=== PATIENT | female | born 1940 | race Caucasian/White ===

== ENCOUNTER 2021-12-09 08:28 | Day surgery (SDC) | payer MEDICARE, MEDICAID ==
[2021-12-02 10:42] LABS: BASOPHILS % (AUTO) 0.3 % (0-1); EOSINOPHILS # (AUTO) 0.1 X10'3 (0-0.9); EOSINOPHILS % (AUTO) 1.5 % (0-6); LYMPHOCYTES # (AUTO) 2.2 X10'3 (1.1-4.8); MEAN CORPUSCULAR HEMOGLOBIN 28.7 PG (27.0-31.0); MEAN CORPUSCULAR HGB CONC 32.4 g/dL (33.0-36.5); MEAN CORPUSCULAR VOLUME 88.5 FL (78-98); MEAN PLATELET VOLUME 9.4 FL (7.4-10.4); MONOCYTES # (AUTO) 0.6 X10'3 (0-0.9); MONOCYTES % (AUTO) 7.9 % (2-12); NEUTROPHILS # (AUTO) 5.1 X10'3 (1.8-7.7); NEUTROPHILS % (AUTO) 63.3 % (42-75); PRE OP HEMATOCRIT 35.4 % (35.0-45.0); PRE OP HEMOGLOBIN 11.5 g/dL (12.0-16.0); PRE OP PLATELET COUNT 255 X10'3 (140-440); RED CELL DISTRIBUTION WIDTH 14.6 % (11.5-14.5)
[2021-12-02 10:54] LABS: ALBUMIN 3.4 G/DL (3.4-5.0); ALBUMIN/GLOBULIN RATIO 0.9 (1.1-1.5); ALKALINE PHOSPHATASE 49 IU/L (46-116); BLOOD UREA NITROGEN 16 MG/DL (7-18); BUN/CREATININE RATIO 22.5 (6.6-38.0); CALCIUM 8.9 MG/DL (8.5-10.1); CHLORIDE 106 MMOL/L (99-107); CREATININE 0.71 MG/DL (0.40-0.90); PRE OP ALT 27 U/L (30-65); PRE OP ANION GAP 6 (8-16); PRE OP AST 23 U/L (10-37); PRE OP BILIRUB, TOTAL 0.5 MG/DL (0.0-1.0); PRE OP GLUCOSE 98 MG/DL (70-104); PRE OP POTASSIUM 4.5 MMOL/L (3.4-5.1); PRE OP SODIUM 144 MMOL/L (135-145); TOTAL CARBON DIOXIDE 31.6 MMOL/L (24-32); eGFR 79 ML/MIN
[~2021-12-09] VITALS: Ht 152.4 cm; Wt 54.4 kg
[~2021-12-09 08:28] MED LIST: BIOT50002 PO; BUPIVAcaine/PF 7.5mg/ml (0.75%) 10ml vial ONE; BUPR8TAB4 SL; CARV25TA3 PO; CLOP75TA34 PO; ESTR1TAB19 PO; GABA-532 PO; HYDR-4070 PO; LEVO300T2 PO; LIDOcaine 0.5% (5mg/ml) 50ml vial ONE; LOPE2CAP PO; LOSA100T57 PO; MULT-1085 PO; ROSU10TA28 PO; TIZA-189 PO; ceFAZolin/D5W- 1GM premix 50 ML IV ONE; famotidine 20mg tablet PO ONE; ringers solution, lacted 1,000 ML IV SCH
[2021-12-09] MEDS ORDERED: morphine 2 MG/ML inj. syringe IV PRN (09:25)
[2021-12-09] MEDS ORDERED: morphine 4 MG/ML inj SYRINge IV PRN (09:25)
[2021-12-09] MEDS ORDERED: hydrALAZINE 20mg/ml inj. IV PRN (09:25)
[2021-12-09] MEDS ORDERED: labetalol 20mg/4ml (5mg/ml) syringe IV PRN (09:25)
[2021-12-09] MEDS ORDERED: ringers solution, lacted 1,000 ML IV SCH (09:25)
[2021-12-09] MEDS ORDERED: ondansetron/PF 4mg/2ml inj IV PRN (09:25)
[2021-12-09] MEDS ORDERED: fentaNYL/PF 50MCG/1 ML 2ML syringe IV PRN ×2 (09:25)
[2021-12-09] MEDS ORDERED: midazolam 1 mg/ML 2ml injection ONE (10:16)
[2021-12-09] MEDS ORDERED: fentaNYL/PF 50MCG/1 ML 2ML syringe ONE (10:16)
[2021-12-09 10:47] VITALS: BP 143/66
--- NOTE | 2021-12-09 10:47 | NUR ---
Received from OR via , accompanied by Anesthesiologist DR MIRANDA and report given by Anesthesiolgist. AWAKENS TO VOICE. VITALS STABLE. DRESSING DI. MATEO PAIN. FINGERS WARM AND PINK.
[2021-12-09 10:57] VITALS: BP 130/62
[2021-12-09 11:07] VITALS: BP 122/58
[2021-12-09 11:17] VITALS: BP 138/64
--- NOTE | 2021-12-09 11:27 | NUR ---
AWAKE AND ORIENTED. VITALS STABLE. DRESSING DI. MATEO PAIN. HOME WITH A FRIEND AT THIS TIME.
[2021-12-09 12:45] VITALS: BP 148/87
== END 2021-12-09 11:27 | disposition home or self-care (01) ==
LOC: PRE-OP 08:28
PROVIDERS: ATTEND Orthopaedic Surgery Hand Surgery
DX: G56.02 Carpal tunnel syndrome, left upper limb (principal); I10 Essential (primary) hypertension; E03.9 Hypothyroidism, unspecified; G43.909 Migraine, unspecified, not intractable, without status migrainosus; M81.0 Age-related osteoporosis without current pathological fracture; M19.041 Primary osteoarthritis, right hand; Z98.890 Other specified postprocedural states; Z79.899 Other long term (current) drug therapy; Z90.710 Acquired absence of both cervix and uterus; Z98.1 Arthrodesis status; Z79.01 Long term (current) use of anticoagulants; Z88.8 Allergy status to other drugs, medicaments and biological substances; Z88.5 Allergy status to narcotic agent; Z20.822 Contact with and (suspected) exposure to COVID-19
CPT/HCPCS: 36415; 64721; 80053; 82948; 85025; 93005; J0690; J2250; J3010; J3490; J7030; J7120; U0003; U0005; Z7506; Z7512; A4215; A6449

== ENCOUNTER 2022-01-03 11:01 | Day surgery (SDC) | payer MEDICARE, MEDICAID ==
[2021-12-28 12:15] LABS: BASOPHILS % (AUTO) 0.4 % (0-1); EOSINOPHILS # (AUTO) 0.2 X10'3 (0-0.9); EOSINOPHILS % (AUTO) 3.4 % (0-6); LYMPHOCYTES # (AUTO) 2.2 X10'3 (1.1-4.8); LYMPHOCYTES % (AUTO) 34.3 % (21-51); MEAN CORPUSCULAR HEMOGLOBIN 28.7 PG (27.0-31.0); MEAN CORPUSCULAR HGB CONC 32.7 g/dL (33.0-36.5); MEAN CORPUSCULAR VOLUME 87.8 FL (78-98); MEAN PLATELET VOLUME 9.3 FL (7.4-10.4); MONOCYTES # (AUTO) 0.6 X10'3 (0-0.9); MONOCYTES % (AUTO) 8.7 % (2-12); NEUTROPHILS # (AUTO) 3.4 X10'3 (1.8-7.7); NEUTROPHILS % (AUTO) 53.2 % (42-75); PRE OP HEMATOCRIT 34.1 % (35.0-45.0); PRE OP HEMOGLOBIN 11.1 g/dL (12.0-16.0); PRE OP PLATELET COUNT 242 X10'3 (140-440); RED BLOOD COUNT 3.88 X10'6 (4.20-5.60); RED CELL DISTRIBUTION WIDTH 14.3 % (11.5-14.5)
[2021-12-28 13:02] LABS: ALBUMIN 3.6 G/DL (3.4-5.0); ALKALINE PHOSPHATASE 48 IU/L (46-116); BLOOD UREA NITROGEN 18 MG/DL (7-18); BUN/CREATININE RATIO 28.1 (6.6-38.0); CALCIUM 8.6 MG/DL (8.5-10.1); CHLORIDE 106 MMOL/L (99-107); CREATININE 0.64 MG/DL (0.40-0.90); PRE OP ALT 26 U/L (30-65); PRE OP ANION GAP 8 (8-16); PRE OP AST 26 U/L (10-37); PRE OP BILIRUB, TOTAL 0.6 MG/DL (0.0-1.0); PRE OP GLUCOSE 95 MG/DL (70-104); PRE OP POTASSIUM 4.2 MMOL/L (3.4-5.1); PRE OP SODIUM 143 MMOL/L (135-145); TOTAL CARBON DIOXIDE 29.5 MMOL/L (24-32); TOTAL PROTEIN 7.1 G/DL (6.4-8.2); eGFR 89 ML/MIN
[2022-01-03] VITALS (12 sets, daily range): BP systolic 119–176; BP diastolic 45–91
[~2022-01-03] VITALS: Ht 293.9 cm; Wt 54.4 kg
[~2022-01-03 11:01] MED LIST changes: +BUPIVAcaine/PF 2.5mg/ml (0.25%) 10ml vial ONE; -BUPIVAcaine/PF 7.5mg/ml (0.75%) 10ml vial ONE; +DOCUMENT DATE & TIME OF BETA-BLOCKER PO ONE; -LIDOcaine 0.5% (5mg/ml) 50ml vial ONE; +LIDOcaine 1% 30ml preserv. free vial ONE; +ceFAZolin inj. 2,000 MG in dextrose 5%-water 100 ML IV ONE; -ceFAZolin/D5W- 1GM premix 50 ML IV ONE
[2022-01-03] MEDS ORDERED: LIDOcaine 1% 30ml preserv. free vial ONE ×2 (13:15→13:22)
[2022-01-03] MEDS ORDERED: BUPIVAcaine/PF 2.5mg/ml (0.25%) 10ml vial ONE ×3 (13:22→14:53)
[2022-01-03] MEDS ORDERED: BUPIVACAINE liposomal/PF 13.3 MG/ML vial IM ONE (13:23)
[2022-01-03] MEDS ORDERED: sevoflurane 250ml liquid IH ONE (13:33)
[2022-01-03] MEDS ORDERED: midazolam 1 mg/ML 2ml injection ONE (13:40)
[2022-01-03] MEDS ORDERED: fentaNYL /PF 50mcg/ml 5ml ampule ONE (13:40)
[2022-01-03] MEDS ORDERED: hydrALAZINE 20mg/ml inj. IV PRN (14:15)
[2022-01-03] MEDS ORDERED: morphine 2 MG/ML inj. syringe IV PRN (14:15)
[2022-01-03] MEDS ORDERED: morphine 4 MG/ML inj SYRINge IV PRN (14:15)
[2022-01-03] MEDS ORDERED: ondansetron/PF 4mg/2ml inj IV PRN (14:15)
[2022-01-03] MEDS ORDERED: meperidine/PF 25mg/ml syringe IV PRN ×3 (14:15)
[2022-01-03] MEDS ORDERED: proCHLORperazine 10 MG/2 ml inj IV PRN (14:15)
[2022-01-03] MEDS ORDERED: ringers solution, lacted 1,000 ML IV SCH (14:15)
[2022-01-03] MEDS ORDERED: labetalol 20mg/4ml (5mg/ml) syringe IV PRN (14:15)
[2022-01-03] MEDS ORDERED: acetaminophen 1,000mg/100ml IV 100 ML IV PRN (14:15)
[2022-01-03] MEDS ORDERED: propofol inj 20 ML IV ONE (14:51)
[2022-01-03] MEDS ORDERED: LIDOcaine 1%/PF 5ML 10 MG/ML VIAL ONE (14:51)
[2022-01-03] MEDS ORDERED: ondansetron/PF 4mg/2ml inj ONE (14:51)
[2022-01-03] MEDS ORDERED: dexamethasone sod phosphate 4mg/ml inj. ONE (14:51)
[2022-01-03] MEDS ORDERED: rocuronium 10mg/ml inj IV ONE (14:51)
[2022-01-03] MEDS ORDERED: neostigmine methylsulfate 1 MG/ML 10ml vial ONE (14:52)
[2022-01-03] MEDS ORDERED: glycopyrrolate 0.2mg/ml inj ONE (14:52)
[2022-01-03] MEDS ORDERED: HYDROcodone/acetaminophen 5mg/325mg tablet PO PRN (15:10)
--- NOTE | 2022-01-03 15:10 | NUR ---
Received from OR via [facility] , accompanied by Anesthesiologist LAY and report given by Anesthesiolgist. PATIENT WITH 3 LAP SITES TO ABDOMEN THAT ARE CDI. 10L MASK ON WITH 100% SATUATIONS. WILL CONTINUE TO ASSESS. Addendum: 01/03/22 at 1522 by Tom Chaudhry RN, RN Amended: Links added.
[2022-01-03] MEDS ORDERED: HYDROmorphone inj. 0.5 MG/0.5 ML DISP.SYRIN ONE (15:16)
--- NOTE | 2022-01-03 16:50 | NUR ---
ALL DISCHARGE CRITERIA HAS BEEN MET. VSS, PAIN AT A TOLERABLE LEVEL, VOIDING AND ABLE TO SAFELY AMBULATE AND TRANSFER SELF. IV TAKEN OUT WITHOUT ANY COMPLICATIONS. ALL DISCHARGE INSTRUCTIONS COVERED WITH PATIENT AND ALL QUESTIONS ANSWERED. PATIENT TAKEN OUT VIA WHEELCHAIR TO PERSONAL VEHICLE WHERE FAMILY/FRIEND DROVE PATIENT HOME. Addendum: 01/03/22 at 1701 by Tom Chaudhry RN, RN Amended: Links added.
== END 2022-01-03 16:50 | disposition home or self-care (01) ==
LOC: PAS 11:01
PROVIDERS: ATTEND Surgery
DX: K43.0 Incisional hernia with obstruction, without gangrene (principal); K41.90 Unilateral femoral hernia, without obstruction or gangrene, not specified as recurrent; K42.9 Umbilical hernia without obstruction or gangrene; I10 Essential (primary) hypertension; E03.9 Hypothyroidism, unspecified; G89.29 Other chronic pain; Z98.890 Other specified postprocedural states; Z90.710 Acquired absence of both cervix and uterus; Z79.899 Other long term (current) drug therapy; Z79.01 Long term (current) use of anticoagulants; Z88.8 Allergy status to other drugs, medicaments and biological substances; Z88.5 Allergy status to narcotic agent; Z82.3 Family history of stroke
CPT/HCPCS: 36415; 49585; 49655; 80053; 82948; 85025; C1781; J0690; J1100; J1170; J2175; J2250; J2270; J2405; J2704; J2710; J3010; J3490; J7030; J7060; J7120; Z7506; Z7508; Z7512; A4215; A4618; C9290

== ENCOUNTER 2022-05-17 19:12 | Emergency (ER) | payer MEDICARE, MEDICAID ==
[~2022-05-17] VITALS: Ht 167.6 cm; Wt 52.2 kg
[~2022-05-17 19:12] MED LIST changes: +AMIO200T61 PO; +APIX2.5T PO; -BIOT50002 PO; -BUPIVAcaine/PF 2.5mg/ml (0.25%) 10ml vial ONE; +CALC500T63 PO; +CARV25TA2 PO; -CARV25TA3 PO; +CHOL500050 PO; +CLOP75TA15 PO; -CLOP75TA34 PO; -DOCUMENT DATE & TIME OF BETA-BLOCKER PO ONE; -GABA-532 PO; +GABA300C PO; +LEVO100T PO; -LEVO300T2 PO; -LIDOcaine 1% 30ml preserv. free vial ONE; -LOPE2CAP PO; +MAGN400C PO; +ROSU10TA2 PO; -ROSU10TA28 PO; -ceFAZolin inj. 2,000 MG in dextrose 5%-water 100 ML IV ONE; -famotidine 20mg tablet PO ONE; -ringers solution, lacted 1,000 ML IV SCH
[2022-05-17 19:19] VITALS: BP 201/72
[2022-05-17 19:40] LABS: BASOPHILS % (AUTO) 0.5 % (0-1); EOSINOPHILS # (AUTO) 0.2 X10'3 (0-0.9); EOSINOPHILS % (AUTO) 2.8 % (0-6); HEMATOCRIT 31.4 % (35.0-45.0); HEMOGLOBIN 10.2 g/dl (12.0-16.0); LYMPHOCYTES # (AUTO) 2.1 X10'3 (1.1-4.8); LYMPHOCYTES % (AUTO) 24.3 % (21-51); MEAN CORPUSCULAR HEMOGLOBIN 28.6 PG (27.0-31.0); MEAN CORPUSCULAR HGB CONC 32.6 g/dL (33.0-36.5); MEAN CORPUSCULAR VOLUME 87.7 FL (78-98); MEAN PLATELET VOLUME 8.5 FL (7.4-10.4); MONOCYTES # (AUTO) 0.7 X10'3 (0-0.9); MONOCYTES % (AUTO) 8.7 % (2-12); NEUTROPHILS # (AUTO) 5.4 X10'3 (1.8-7.7); NEUTROPHILS % (AUTO) 63.7 % (42-75); PLATELET COUNT 277 X10'3 (140-440); RED BLOOD COUNT 3.58 X10'6 (4.20-5.60); RED CELL DISTRIBUTION WIDTH 16.5 % (11.5-14.5); WHITE BLOOD COUNT 8.4 X10'3 (4.5-11.0)
[2022-05-17 19:55] LABS: ALANINE AMINOTRANSFERASE 44 U/L (12-78); ALBUMIN 3.8 G/DL (3.4-5.0); ALBUMIN/GLOBULIN RATIO 1.1 (1.1-1.5); ALKALINE PHOSPHATASE 78 IU/L (46-116); ANION GAP 8 (8-16); ASPARTATE AMINO TRANSFERASE 49 U/L (10-37); BILIRUBIN,TOTAL 0.5 MG/DL (0.1-1.0); BLOOD UREA NITROGEN 16 MG/DL (7-18); BUN/CREATININE RATIO 18.6 (6.6-38.0); CALCIUM 8.9 MG/DL (8.5-10.1); CHLORIDE 105 MMOL/L (99-107); CREATININE 0.86 MG/DL (0.40-0.90); GLUCOSE 121 MG/DL (70-104); POTASSIUM 4.4 MMOL/L (3.5-5.1); SODIUM 142 MMOL/L (135-145); TOTAL PROTEIN 7.3 G/DL (6.4-8.2); eGFR 63 ML/MIN
== END 2022-05-18 01:45 | disposition home or self-care (01) ==
LOC: ER 19:13
DX: R00.2 Palpitations (principal); R06.02 Shortness of breath; R11.0 Nausea; I48.91 Unspecified atrial fibrillation; Z88.5 Allergy status to narcotic agent; Z88.6 Allergy status to analgesic agent
CPT/HCPCS: 36415; 71045; 80053; 83880; 84484; 85025; 93005; 99285

== ENCOUNTER 2022-06-09 10:01 | Outpatient (CLI) | payer MEDICARE, MEDICAID ==
[~2022-06-09] VITALS: Ht 152.4 cm; Wt 52.2 kg
[2022-06-09] MEDS ORDERED: albuterol 2.5 MG/3 ML nebule NEB ONE (11:15)
== END 2022-06-09 23:59 | disposition home or self-care (01) ==
LOC: RT 10:01
PROVIDERS: ATTEND Internal Medicine Cardiovascular Disease
DX: R06.02 Shortness of breath (principal); M47.814 Spondylosis without myelopathy or radiculopathy, thoracic region; Z79.899 Other long term (current) drug therapy
CPT/HCPCS: 71046; 94060; 94727; 94729; 94760

== ENCOUNTER 2023-07-13 10:23 | Day surgery (SDC) | payer MEDICARE, MEDICAID ==
[2023-07-12 13:57] LABS: BASOPHILS # (AUTO) 0.1 X10'3 (0-0.2); BASOPHILS % (AUTO) 0.7 % (0-1); EOSINOPHILS # (AUTO) 0.2 X10'3 (0-0.9); EOSINOPHILS % (AUTO) 2.5 % (0-6); HEMATOCRIT 36.3 % (35.0-45.0); HEMOGLOBIN 12.1 g/dl (12.0-16.0); LYMPHOCYTES # (AUTO) 2.3 X10'3 (1.1-4.8); LYMPHOCYTES % (AUTO) 26.1 % (21-51); MEAN CORPUSCULAR HEMOGLOBIN 30.7 PG (27.0-31.0); MEAN CORPUSCULAR HGB CONC 33.3 g/dL (33.0-36.5); MEAN CORPUSCULAR VOLUME 92.2 FL (78-98); MONOCYTES # (AUTO) 0.8 X10'3 (0-0.9); MONOCYTES % (AUTO) 8.5 % (2-12); NEUTROPHILS # (AUTO) 5.6 X10'3 (1.8-7.7); NEUTROPHILS % (AUTO) 62.2 % (42-75); PLATELET COUNT 304 X10'3 (140-440); RED BLOOD COUNT 3.93 X10'6 (4.20-5.60); RED CELL DISTRIBUTION WIDTH 14.9 % (11.5-14.5)
[2023-07-12 14:11] LABS: APTT 29 SECONDS (22-32); INR 1.1 INR; PROTHROMBIN TIME 11.4 SECONDS (9.0-12.0)
[2023-07-12 14:27] LABS: ALBUMIN 3.7 G/DL (3.4-5.0); ANION GAP 4 (8-16); BLOOD UREA NITROGEN 28 MG/DL (7-18); BUN/CREATININE RATIO 38.4 (10.0-20.0); CALCIUM 8.7 MG/DL (8.5-10.1); CHLORIDE 104 MMOL/L (99-107); CHOL/HDL RATIO 2.7 (0.00-4.99); CHOLESTEROL 157 MG/DL (0-200); CREATININE 0.73 MG/DL (0.40-0.90); GLUCOSE 94 MG/DL (70-104); HDL CHOLESTEROL 59 MG/DL (35-60); LDL CHOLESTEROL 84 MG/DL (50-100); POTASSIUM 4.2 MMOL/L (3.5-5.1); PRO BRAIN NATRIURETIC PEPTIDE 1649 PG/ML (0-450); SODIUM 138 MMOL/L (135-145); TOTAL CARBON DIOXIDE 29.7 MMOL/L (24-32); TRIGLYCERIDES 57 MG/DL (20-135); eGFR 76 ML/MIN
[2023-07-13] VITALS (12 sets, daily range): BP systolic 112–191; BP diastolic 50–92; PULSE 52–66; RESP 14–16; TEMP 97.6; O2SAT 99
[~2023-07-13] VITALS: Ht 160 cm; Wt 53.2 kg
[~2023-07-13 10:23] MED LIST changes: +AMI200T PO; -AMIO200T61 PO; -LOSA100T57 PO; +LOSA100T58 PO
[2023-07-13] MEDS ORDERED: diphenhydrAMINE 25mg capsule PO PRN (10:40)
[2023-07-13] MEDS ORDERED: LORazepam 0.5 MG tablet PO PRN (10:40)
[2023-07-13] MEDS ORDERED: normal saline 1,000 ML IV SCH (10:40)
[2023-07-13] MEDS ORDERED: midazolam 1 mg/ML 2ml injection ONE (11:00)
[2023-07-13] MEDS ORDERED: verapamil 2.5 mg/ml inj IV ONE (11:00)
[2023-07-13] MEDS ORDERED: LIDOcaine 1% (10mg/ml) 2ml vial ONE (11:00)
[2023-07-13] MEDS ORDERED: iohexol 350 MG/ML 50ML vial IV ONE (11:01)
[2023-07-13] MEDS ORDERED: nitroGLYCERIN 500mcg/5mL D5W 5 ML IV ONE (11:01)
[2023-07-13] MEDS ORDERED: iohexol 350MG/ML 100ml bottle IV ONE (11:01)
[2023-07-13] MEDS ORDERED: heparin 1,000unit/ml 10ml vial 10 ML ONE (11:01)
[2023-07-13] MEDS ORDERED: LEVO112T5 PO (11:12)
[2023-07-13] MEDS ORDERED: FURO40TA4 PO (11:14)
[2023-07-13] MEDS ORDERED: HYDR4TAB55 PO (11:14)
[2023-07-13] MEDS ORDERED: POTA-206 PO (11:15)
[2023-07-13] MEDS ORDERED: PROP120C2 PO (11:15)
[2023-07-13] MEDS ORDERED: fentaNYL/PF 50MCG/1 ML 2ML syringe ONE (11:36)
[2023-07-13] MEDS ORDERED: LIDOcaine 1% 30ml preserv. free vial ONE (11:40)
[2023-07-13] MEDS ORDERED: atropine 0.1mg/ml 10ml syringe ONE (12:02)
[2023-07-13] MEDS ORDERED: heparin 1,000 UNITS/NS 500ml 500 ML ONE (12:17)
[2023-07-13] MEDS ORDERED: hydrALAZINE 20mg/ml inj. IV ONE (12:18)
[2023-07-13 12:28] LABS: ISTAT HGB ART 11.2 g/dl (12.0-16.0); ISTAT Hct ART 33 %PCV (35-45); ISTAT O2 SATURATION ARTERIAL 97 % (95-98); ISTAT SOURCE ART
[2023-07-13] MEDS ORDERED: furosemide 40mg/4ml inj ONE (12:38)
== END 2023-07-13 17:00 | disposition home or self-care (01) ==
LOC: SSTAY O 10:23
PROVIDERS: ATTEND Internal Medicine Cardiovascular Disease
DX: R07.89 Other chest pain (principal); I25.10 Atherosclerotic heart disease of native coronary artery without angina pectoris; I11.0 Hypertensive heart disease with heart failure; I50.30 Unspecified diastolic (congestive) heart failure; I08.1 Rheumatic disorders of both mitral and tricuspid valves; I48.0 Paroxysmal atrial fibrillation; I27.29 Other secondary pulmonary hypertension; M81.0 Age-related osteoporosis without current pathological fracture; M19.90 Unspecified osteoarthritis, unspecified site; G89.29 Other chronic pain; M06.9 Rheumatoid arthritis, unspecified; G43.909 Migraine, unspecified, not intractable, without status migrainosus; E78.5 Hyperlipidemia, unspecified; Z87.01 Personal history of pneumonia (recurrent); Z86.73 Personal history of transient ischemic attack (TIA), and cerebral infarction without residual deficits; Z79.01 Long term (current) use of anticoagulants; Z88.8 Allergy status to other drugs, medicaments and biological substances; Z88.5 Allergy status to narcotic agent; Z98.1 Arthrodesis status; Z98.890 Other specified postprocedural states; Z82.49 Family history of ischemic heart disease and other diseases of the circulatory system; Z81.8 Family history of other mental and behavioral disorders
CPT/HCPCS: 36415; 76937; 80048; 80061; 82803; 83880; 85014; 85025; 85610; 85730; 93005; 93460; 99152; 99153; A6258; J0360; J1644; J1940; J2250; J3010; J3490; J7030; Q9967; A6402; C1725; C1751; C1769; C1894; J0461

== ENCOUNTER 2023-08-15 09:23 | Outpatient (CLI) | payer MEDICARE, MEDICAID ==
[~2023-08-15] VITALS: Ht 152.4 cm; Wt 52.2 kg
[~2023-08-15 09:23] MED LIST changes: -BUPR8TAB4 SL; -CALC500T63 PO; -CARV25TA2 PO; -CHOL500050 PO; -CLOP75TA15 PO; +FURO40TA4 PO; -HYDR-4070 PO; +HYDR4TAB55 PO; +HYDR50TA46 PO; -LEVO100T PO; +LEVO112T5 PO; -MAGN400C PO; +POTA-206 PO; +PROP120C2 PO; -TIZA-189 PO
[2023-08-15 09:45] LABS: TOTAL HEMOGLOBIN 13.7 G/dl (12.0-16.0)
[2023-08-15] MEDS ORDERED: albuterol 2.5 MG/3 ML nebule NEB ONE (10:10)
[2023-08-15 10:20] VITALS: PULSE 51; RESP 16; O2SAT 98
== END 2023-08-15 23:59 | disposition home or self-care (01) ==
LOC: RT 09:23
PROVIDERS: ATTEND Internal Medicine Cardiovascular Disease
DX: R94.2 Abnormal results of pulmonary function studies (principal); R06.02 Shortness of breath; Z79.899 Other long term (current) drug therapy
CPT/HCPCS: 85018; 94060; 94727; 94729; 94760

== ENCOUNTER 2024-01-07 08:45 | Outpatient (CLI) | payer MEDICARE, MEDICAID | END 2024-01-07 23:59 | disposition home or self-care (01) | LOC: RAD 08:45 | PROVIDERS: ATTEND Nurse Practitioner Family | DX: R10.84 Generalized abdominal pain (principal) | CPT/HCPCS: 76700; 76856 ==

== ENCOUNTER 2025-01-13 07:07 | Day surgery (SDC) | payer MEDICARE, MEDICAID ==
[2025-01-12 12:25] LABS: BASOPHILS % (AUTO) 0.4 % (0-1); EOSINOPHILS % (AUTO) 0.5 % (0-6); HEMOGLOBIN 10.6 g/dl (12.0-16.0); LYMPHOCYTES # (AUTO) 1.4 X10'3 (1.1-4.8); MEAN CORPUSCULAR HEMOGLOBIN 29.6 PG (27.0-31.0); MEAN CORPUSCULAR HGB CONC 33.1 g/dL (33.0-36.5); MEAN CORPUSCULAR VOLUME 89.4 FL (78-98); MEAN PLATELET VOLUME 9.2 FL (7.4-10.4); MONOCYTES # (AUTO) 0.8 X10'3 (0-0.9); MONOCYTES % (AUTO) 7.9 % (2-12); NEUTROPHILS # (AUTO) 7.6 X10'3 (1.8-7.7); NEUTROPHILS % (AUTO) 77.2 % (42-75); PLATELET COUNT 281 X10'3 (140-440); RED BLOOD COUNT 3.57 X10'6 (4.20-5.60); RED CELL DISTRIBUTION WIDTH 16.5 % (11.5-14.5); WHITE BLOOD COUNT 9.8 X10'3 (4.5-11.0)
[2025-01-12 12:36] LABS: ALBUMIN 3.6 G/DL (3.4-5.0); ANION GAP 7 (8-16); BLOOD UREA NITROGEN 23 MG/DL (7-18); BUN/CREATININE RATIO 26.1 (10.0-20.0); CALCIUM 8.6 MG/DL (8.5-10.1); CHLORIDE 105 MMOL/L (99-107); CREATININE 0.88 MG/DL (0.40-0.90); GLUCOSE 127 MG/DL (70-104); POTASSIUM 3.7 MMOL/L (3.5-5.1); SODIUM 141 MMOL/L (135-145); eGFR 61 ML/MIN
[2025-01-12 13:44] LABS: INR 1.2 INR; PROTHROMBIN TIME 12.3 SECONDS (9.0-12.0)
[~2025-01-13] VITALS: Ht 152.4 cm; Wt 53.1 kg
[~2025-01-13 07:07] MED LIST changes: +CHOL500061 PO; -ESTR1TAB19 PO; +FERR-29 PO; +HYDR-3972 PO; -HYDR4TAB55 PO; +MAGN400C PO; -MULT-1085 PO; +OXYC20TA55 PO; +PROG100C11 PO; +TIZA-189 PO
[2025-01-13 07:20] VITALS: BP 177/81; PULSE 77; RESP 15; TEMP 98.5; O2SAT 99
--- NOTE | 2025-01-13 07:36 | ELECTROCARDIOGRAPH REPORT ---
[facility] Test Date: 2025-01-13 Test Time: 07:34:15 Pat Name: TWILA CAROLINA Department: [facility] Patient ID: [facility]-[id number] Room: Gender: F Psychologist Experimental: ARUN : 1940 Requested By: DELIO NICK Order Number: [id number] Reading MD: Dr. ALLEY Nick Measurements Intervals Kimball Rate: 81 P: 0 MA: 0 QRS: 67 QRSD: 95 T: 74 QT: 448 QTc: 520 Interpretive Statements Atrial fibrillation Prolonged QT interval Electronically Signed On 01-13-2025 9:03:[address] ALLEY Ncik Please click the below link to view image of tracing.
[2025-01-13] MEDS ORDERED: fentaNYL/PF 50MCG/1 ML 2ML syringe ONE (08:36)
[2025-01-13] MEDS ORDERED: midazolam 1 mg/ML 2ml injection ONE (08:36)
[2025-01-13] MEDS ORDERED: amiodarone 50MG/ML inj IV ONE (08:36)
[2025-01-13] MEDS ORDERED: atropine 0.1mg/ml 10ml syringe ONE (08:36)
[2025-01-13 09:05] VITALS: BP 121/61; PULSE 53; RESP 16; O2SAT 98
[2025-01-13 09:09] VITALS: BP 126/50; PULSE 53; RESP 16; O2SAT 95
[2025-01-13 09:15] VITALS: BP 135/54; PULSE 51; RESP 16; O2SAT 95
[2025-01-13] MEDS ORDERED: MIDAZolam 1mg/ml 10ml vial IV ONE (09:15)
[2025-01-13] MEDS ORDERED: LORazepam 0.5 MG tablet PO ONE (09:15)
[2025-01-13] MEDS ORDERED: amiodarone 150mg/dext, iso-os 100 ML IV ONE (09:15)
[2025-01-13] MEDS ORDERED: diphenhydrAMINE 25mg capsule PO ONE (09:15)
[2025-01-13] MEDS ORDERED: normal saline 1000ml 1,000 ML IV SCH (09:15)
[2025-01-13] MEDS ORDERED: atropine 0.1mg/ml 10ml syringe IV ONE (09:15)
[2025-01-13 09:30] VITALS: BP 130/51; PULSE 52; RESP 16; O2SAT 95
--- NOTE | 2025-01-13 09:51 | CARDIOLOGY REPORT ---
DATE OF SERVICE: 01/13/2025 DICTATING PHYSICIAN: ALLEY Nick MD PRIMARY PHYSICIAN: Dr. Anusha Lubin, [facility] [employer] EXECUTIVE SECURITY: ALLEY Nick MD INDICATIONS: The patient is an 84-year-old postmenopausal female with hypertension, hyperlipidemia, MR/TR, CAD, history of paroxysmal atrial fibrillation. His PAF was discovered back in 10/11. At that time, she was treated with amiodarone. The patient had electrical cardioversion on 03/30/2022. The patient has remained in normal sinus rhythm since then and her beta chidi and carvedilol changed to propranolol because of her tremors back in 04/14 and her amiodarone reduced to 100 mg p.o. daily back in 07/2023. Her AFib recurred in 11/14 and amiodarone 200 mg once a day, Eliquis 2.5 p.o. b.i.d. and propranolol continued. After discussing risks, benefits, alterations, the patient is undergoing electrical cardioversion today. The patient had severe MR, for which she had a mitral valve clip placement by Dr. Chemo Shah back on 09/24/2023. 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 The patient has a history of diastolic heart failure. DESCRIPTION OF PROCEDURE: Anterior and posterior patches used. Using biphasic electrical energy 200 joules, the patient was converted to normal sinus rhythm. IMPRESSION: An 84-year-old female with history of PAF, which is recurrent and persistent, converted back to normal sinus rhythm. RECOMMENDATIONS: Continue amiodarone 200 mg once a day, apixaban 2.5 mg p.o. b.i.d. and propranolol XL 220 p.o. daily. Consider reducing amiodarone to 100 mg p.o. daily in the future. ALLEY Nick MD TID: [id number] RECEIPT: [id number]/MADI cc: Anusha Lubin
--- NOTE | 2025-01-13 10:15 | ELECTROCARDIOGRAPH REPORT ---
[facility] Test Date: 2025-01-13 Test Time: 09:14:23 Pat Name: TWILA CAROLINA Department: [facility] Patient ID: [id number] Room: Gender: F Patron Attendant: : 1940 Requested By: DELIO ARCOS Order Number: [id number] Reading MD: Dr. Dick Cruz Measurements Intervals Mikana Rate: 52 P: 0 NC: 64 QRS: 34 QRSD: 92 T: 56 QT: 537 QTc: 500 Interpretive Statements Sinus rhythm Atrial premature complex Prolonged NC interval Electronically Signed On 01-13-2025 18:21:[address] Dick Cruz Please click the below link to view image of tracing.
== END 2025-01-13 09:30 | disposition home or self-care (01) ==
LOC: SSTAY O 07:07
PROVIDERS: ATTEND Internal Medicine Cardiovascular Disease
DX: I48.0 Paroxysmal atrial fibrillation (principal); I11.0 Hypertensive heart disease with heart failure; E78.5 Hyperlipidemia, unspecified; I25.10 Atherosclerotic heart disease of native coronary artery without angina pectoris; I50.32 Chronic diastolic (congestive) heart failure; Z79.899 Other long term (current) drug therapy; Z78.0 Asymptomatic menopausal state
CPT/HCPCS: 36415; 80048; 85025; 85610; 92960; 93005; J2250; J3010; J7030; 99152; J0282; J0461